=== PATIENT | female | born 1955 | race Caucasian/White ===

== ENCOUNTER → 2017-11-13 | Outpatient (CLI) | payer SELFPAY | LOC: COL.RAD 09:31 | DX: B19.20 Unspecified viral hepatitis C without hepatic coma (principal) ==

== ENCOUNTER 2018-08-06 10:31 | Day surgery (SDC) | payer SELFPAY ==
[2018-08-06] VITALS (9 sets, daily range): BP systolic 99–126; BP diastolic 72–89; PULSE 82–99; TEMP 98
[~2018-08-06] VITALS: Ht 165.1 cm; Wt 52.0 kg
[2018-08-06] MEDS ORDERED: VERAPAMIL 440 MG/TAB PO (11:38)
[2018-08-06] MEDS ORDERED: ZITHROMAX500 M2 PO (11:39)
[2018-08-06] MEDS ORDERED: ASPI325T6 PO (11:40)
[2018-08-06] MEDS ORDERED: NITROSTAT0.4 MG/TAB SL (11:41)
[2018-08-06 11:42] LABS: CALCIUM 9.2 mg/dL (8.4-10.2); CREATININE, serum 0.62 (0.52-1.25)
[2018-08-06] MEDS ORDERED: LOPRESSOR 225 MG/TAB PO (11:42)
[2018-08-06 11:46] LABS: INR 1.1 (0.8-3.0)
[2018-08-06 11:50] LABS: POTASSIUM 2.9 mmol/L (3.4-5.0)
--- NOTE | 2018-08-06 14:13 | NUR ---
Pt to dye lab technician for heart cath per bed with Yves.
[2018-08-06 14:17] LABS: HEMATOCRIT 38.7 % (37.0-47.0); HEMOGLOBIN 14.8 g/dl (12.5-16.0); MEAN CELL VOLUME 105 fl (80.0-100.0); MEAN CORPUSCULAR HEMOGLOBIN 40 pg (27.0-31.0); MEAN CORPUSCULAR HGB CONC 38 g/dl (33.0-37.0); MEAN PLATELET VOLUME 9.1 fl (7.4-10.4); PLATELET COUNT 318 K/mm3 (130-400); RED BLOOD COUNT 3.67 M/mm3 (4.10-5.30); REDCELL DISTRIBUTION WIDTH-CV 13.2 % (11.5-14.5)
--- NOTE | 2018-08-06 14:44 | NUR ---
ALL MEDICATIONS GIVEN VORB WITH MD. SEE MERGE FOR ALL MEDICATION ADMIN TIMES. SEE MERGE FOR RASS ASSESSMENTS DURING AND POST PROCEDURES.
--- NOTE | 2018-08-06 15:35 | NUR ---
Pt returned to EU 15 per bed s/p heart cath. Pt resting well, family at bedside.
--- NOTE | 2018-08-06 17:05 | NUR ---
Report to Janell Painting RN who assumed care at this time.
--- NOTE | 2018-08-06 17:44 | NUR ---
Ambulated to bathroom with steady gait. VSS.
--- NOTE | 2018-08-06 17:50 | NUR ---
Ambulated to bathroom with steady gait. Right groin site soft to palpation. INT discontinued intact.
--- NOTE | 2018-08-06 18:00 | NUR ---
Discharge instructions given and transferred to private car by cy
== END 2018-08-06 18:05 | disposition home or self-care (01) ==
LOC: COL.CAR 10:31
PROVIDERS: Internal Medicine Interventional Cardiology
DX: I25.10 Atherosclerotic heart disease of native coronary artery without angina pectoris (principal); R94.31 Abnormal electrocardiogram [ECG] [EKG]; I10 Essential (primary) hypertension; R53.83 Other fatigue; F17.210 Nicotine dependence, cigarettes, uncomplicated; Z88.0 Allergy status to penicillin; Z88.8 Allergy status to other drugs, medicaments and biological substances
CPT/HCPCS: C1760; C1894; J1644; J2250; J3010; J3480; Q9967

== ENCOUNTER 2018-11-30 15:38 | Inpatient (IN) | payer OTHER ==
[~2018-11-30] VITALS: Ht 165.1 cm; Wt 53.7 kg
[~2018-11-30 15:38] MED LIST: ASPI325T6 PO; LOPRESSOR 225 MG/TAB PO; NITROSTAT0.4 MG/TAB SL; VERAPAMIL 440 MG/TAB PO; ZITHROMAX500 M2 PO
[2018-11-30] MEDS ORDERED: VERAPAMIL 440 MG/TAB PO (15:51)
[2018-11-30 16:02] LABS: BASO # 0.1 (0.0-0.2); BASO % 0.5 % (0.0-2.0); EOS % 0.1 % (0-4.0); GRAN # 10.9 (1.4-6.5); GRAN % 80.3 % (42.2-75.2); HEMATOCRIT 39.8 % (37.0-47.0); HEMOGLOBIN 14.9 g/dl (12.5-16.0); LYMPH # 1.9 (1.2-3.4); LYMPH % 13.9 % (20.0-51.0); MEAN CELL VOLUME 105 fl (80.0-100.0); MEAN CORPUSCULAR HEMOGLOBIN 39 pg (27.0-31.0); MEAN CORPUSCULAR HGB CONC 37 g/dl (33.0-37.0); MEAN PLATELET VOLUME 9.2 fl (7.4-10.4); MONO # 0.7 (0.1-0.6); MONO % 4.8 % (1.7-9.3); PLATELET COUNT 375 K/mm3 (130-400); RED BLOOD COUNT 3.79 M/mm3 (4.10-5.30); REDCELL DISTRIBUTION WIDTH-CV 17.5 % (11.5-14.5)
[2018-11-30 16:10] LABS: ALANINE AMINOTRANSFERASE 26 U/L (9-52); ALKALINE PHOSPHATASE 92 U/L (50-136); ANION GAP 17 mmol/L (7-16); AST,SGOT 69 U/L (15-37); BLOOD UREA NITROGEN 13 mg/dL (7-17); CALCIUM 9.5 mg/dL (8.4-10.2); CARBON DIOXIDE 20 mmol/L (22-30); CHLORIDE 97 mmol/L (98-107); GLUCOSE 159 mg/dL (74-106); SODIUM 134 mmol/L (137-145); TOTAL PROTEIN 7.6 gm/dL (6.4-8.2)
[2018-11-30 16:23] LABS: TROPONIN-I < 0.012 ng/mL (0.000-0.035)
[2018-11-30] MEDS ORDERED: KLOR-CON20 MEQ PO (18:31)
[2018-11-30] MEDS ORDERED: PREDNISONE20 MG PO (18:31)
[2018-11-30 21:44] LABS: INR 0.9 (0.8-3.0); PROTHROMBIN TIME 10.9 SECONDS (9.7-12.8)
[2018-11-30 21:46] LABS: PARTIAL THROMBOPLASTIN TIME 26.2 SECONDS (26.0-37.0)
[2018-11-30 22:10] VITALS: BP 128/76; PULSE 88; TEMP 98
[2018-12-01] VITALS (12 sets, daily range): BP systolic 91–136; BP diastolic 46–73; PULSE 72–105; TEMP 97–98.7
[2018-12-01 00:58] LABS: ARTERIAL BLD GAS O2 SATURATION 97.9 % (92-100); ARTERIAL BLD GAS TCO2 CT 17.3; ARTERIAL BLOOD GAS BASE EXCESS -6.1 (-2-2); ARTERIAL BLOOD GAS HCO3 16.5 meq/L (22-26); ARTERIAL BLOOD GAS PCO2 24.7 mmHg (35-45); ARTERIAL BLOOD GAS pH 7.44 (7.35-7.45)
--- NOTE | 2018-12-01 01:00 | NUR ---
Patient arrived to medical floor from ER at aproximately 2200. Denies having pain and discomfort. Alert and oriented x 4, and able to make needs known. Peripheral IV to left forearm. Fluids started per orders. Denies having SOB and dyspnea. See assesment. Attempted to start another IV to right forearm, unable. Will have another nurse try. Patient is currently down for CT. ABG obtained and results given to CST.
--- NOTE | 2018-12-01 04:59 | NUR ---
Patient has received some oral Ativan for alcohol detox-anxiety and tremors. Gait remains very unsteady. One assist. Has urinated twice. UA obtained and taken to lab. Patient remains NPO at this time. Needs reminders on being NPO and purpose. NS currently running at 150 ml/hr to peripheral IV to right forearm, along with potassium replacement. Patient may be getting an EGD this morning, waiting to be seen by GI first. MRI brain to be done today as well. Patient voices no questions, needs, or concerns at this time. Patient is on high fall risk precautions. Resting in bed with call light within reach.
[2018-12-01 05:00] LABS: COLLECTION METHOD CLEAN CATCH
[2018-12-01 05:07] LABS: MUCOUS Present /lpf; PH 7 (5-8); SQUAMOUS EPITHELIAL 0-2 /hpf; URINE APPEARANCE Clear; URINE BACTERIA None Seen /hpf; URINE BILIRUBIN Negative (NEGATIVE); URINE BLOOD 1+ (NEGATIVE); URINE COLOR Yellow; URINE GLUCOSE Negative (NEGATIVE); URINE KETONE Negative (NEGATIVE); URINE LEUKOCYTE ESTERASE Negative (NEGATIVE); URINE NITRATE Negative (NEGATIVE); URINE PROTEIN(semi-quant) Negative (NEGATIVE); URINE RBC None Seen /hpf; URINE UROBILINOGEN Negative (NEGATIVE)
[2018-12-01 05:13] LABS: TRICYCLIC ANTIDEPRESS URINE NEGATIVE
[2018-12-01 06:48] LABS: BASO % 0.1 % (0.0-2.0); GRAN # 13.1 (1.4-6.5); GRAN % 89.7 % (42.2-75.2); LYMPH # 0.8 (1.2-3.4); LYMPH % 5.2 % (20.0-51.0); MEAN CELL VOLUME 109 fl (80.0-100.0); MEAN CORPUSCULAR HGB CONC 36 g/dl (33.0-37.0); MEAN PLATELET VOLUME 9.4 fl (7.4-10.4); MONO # 0.7 (0.1-0.6); MONO % 4.6 % (1.7-9.3); RED BLOOD COUNT 2.58 M/mm3 (4.10-5.30)
[2018-12-01 06:50] LABS: HEMATOCRIT 28.2 % (37.0-47.0); HEMOGLOBIN 10.2 g/dl (12.5-16.0); MEAN CORPUSCULAR HEMOGLOBIN 40 pg (27.0-31.0); PLATELET COUNT 260 K/mm3 (130-400)
[2018-12-01 06:57] LABS: ALBUMIN 2.7 gm/dL (3.5-5.0); BILIRUBIN,TOTAL 0.5 mg/dL (0.0-1.0); CALCIUM 6.8 mg/dL (8.4-10.2); CREATININE, serum 0.45 (0.52-1.25); MAGNESIUM 2.4 mg/dL (1.6-2.3); POTASSIUM 3.7 mmol/L (3.4-5.0); TOTAL PROTEIN 5.6 gm/dL (6.4-8.2)
[2018-12-01 10:31] LABS: POTASSIUM 3.6 mmol/L (3.4-5.0)
[2018-12-01 10:39] LABS: PRE ALBUMIN 12.7 mg/dL (17.6-36.0)
--- NOTE | 2018-12-01 16:31 | NUR ---
GEORGE met with patient to discuss discharge planning. Patient lives independently at home with her friend. Patient reports she goes to [facility] for primary care. Patient obtains medications from [facility] pharmacy. Patient reports she uses [employer] to help pay for medications. SW provided [employer] resource as well. Patient is independent with ADLs and does not use any DME or home health. Patient was also interested in getting food stamps. GEORGE provided the phone number for [place] [employer] [facility]. Patient applied for medicaid with the financial counselor. GEORGE will continue to follow.
--- NOTE | 2018-12-01 18:38 | NUR ---
PT HAD UNEVENTFUL DAY. STATED A FEW TIMES THAT SHE WANTS ATIVAN EVERY HOUR SO SHE CAN SLEEP. THIS NURSE REVIEWED THE ATIVAN ORDER WITH THE PT, INFORMED HER ITS AND ALCOHOL DETOX SCALE AND DOSE DEPENDING ON HER SCORE, THAT ITS NOT A STANDARD PRN ATIVAN DOSE. PT VOICED UNDERSTANDING BUT THEN ASKED FOR IT A FEW TIMES THIS SHIFT IN ORDER TO SLEEP DUE TO US BEING IN HER ROOM SEVERAL TIMES TO TAKE VITALS OR DOCTORS BEING IN. THIS NURSE CALLED DR. JUNE AND RECIEVED A VERBAL ORDER FOR AMBIAN FOR SLEEP AND NOT TO USE ATIVAN FOR SLEEP. PT'S DIET WAS ADVANCED TO GENERAL DIET, PT TOLERATED WELL. PT HAD C/O KNEE PAIN THIS AFTERNOON, THIS NURSE ASKED DR. RAM ABOUT PAIN MEDS DUE TO HER ONLY HAVING IV DILADID ON ORDER, PROVIDER STATED HE WAS GOING TO LOOK OVER PT MEDS AND LBAS THEN PUT IN A PAIN MED, AT THIS TIME STILL WAITING A MEDS ORDER. THIS NURSE INFORMED PT THAT WE ARE WAITING FOR MEDICATION ORDER, PT VERBALIZED UNDERSTANDING. PT HAS ONLY BEEN SCORING 1-2'S ON DETOX PROTOCOL THIS SHIFT. HAS BEEN RECIEVING THIMINE IV TID WITHOUT ISSUES, DOES HAVE C/O IT STINGING BETI, SLOWED DOWN RATE A LITTLE BIT AND PT TOLERATED IT WELL.
--- NOTE | 2018-12-01 20:20 | NUR ---
Patient assessed at this time. Alert and oriented x 4, and able to make needs known. Reported pain to knees. Given PRN Irene as requested. Peripheral IV to left forearm. NS running at 75 ml/hr per orders. Site is without redness, warmth, swelling, and pain. LS CTA in upper lobes, diminished in lower lobes. HRR. Telemetry in place. Denies chest pain and discomfort. Capillary refill less than 3 seconds. Non-tenting skin turgor. BSAx4. Abdomen soft and non-tender. No edema. Patient's skin is dry. Given PRN Ambien as requested for insomnia. Patient not scoring enough for PRN Ativan. Resting in bed with call light within reach.
[2018-12-01 23:50] LABS: FOLATE (FOLIC ACID) 15.6 ng/mL (7.0-31.4)
[2018-12-02] VITALS (8 sets, daily range): BP systolic 94–138; BP diastolic 51–85; PULSE 75–96; TEMP 97.7–98.7
--- NOTE | 2018-12-02 06:02 | NUR ---
Patient has not had any further complaints of pain or discomfort voiced at this time. Has been resting in bed with eyes closed most of this shift. NS continues to run at 75 ml/hr. Patient has been NPO since midnight for EGD scheduled for today. Voices no questions, needs, or concerns. Resting in bed with call light within reach.
[2018-12-02 06:17] LABS: BASO % 0.2 % (0.0-2.0); EOS % 0.1 % (0-4.0); GRAN # 12.8 (1.4-6.5); GRAN % 81.1 % (42.2-75.2); LYMPH # 2.1 (1.2-3.4); LYMPH % 13.6 % (20.0-51.0); MEAN CORPUSCULAR HGB CONC 34 g/dl (33.0-37.0); MEAN PLATELET VOLUME 9.7 fl (7.4-10.4); MONO # 0.7 (0.1-0.6); MONO % 4.3 % (1.7-9.3); PLATELET COUNT 242 K/mm3 (130-400); RED BLOOD COUNT 2.53 M/mm3 (4.10-5.30); REDCELL DISTRIBUTION WIDTH-CV 18.5 % (11.5-14.5)
[2018-12-02 06:25] LABS: HEMATOCRIT 28.8 % (37.0-47.0); HEMOGLOBIN 9.9 g/dl (12.5-16.0); MEAN CORPUSCULAR HEMOGLOBIN 39 pg (27.0-31.0)
[2018-12-02 06:26] LABS: MEAN CELL VOLUME 114 fl (80.0-100.0)
[2018-12-02 06:28] LABS: ALBUMIN 2.7 gm/dL (3.5-5.0); BILIRUBIN,TOTAL 0.5 mg/dL (0.0-1.0); CALCIUM 7.3 mg/dL (8.4-10.2); CREATININE, serum 0.45 (0.52-1.25); PHOSPHOROUS 1.8 mg/dL (2.5-4.5); POTASSIUM 4.2 mmol/L (3.4-5.0); TOTAL PROTEIN 5.4 gm/dL (6.4-8.2)
--- NOTE | 2018-12-02 19:30 | NUR ---
Patient assessed at this time. Alert and oriented, and able to make needs known. Reported level 8 pain to back/right scapula area. Given PRN Morphine as requested. Peripheral IV to left forearm flushed. Site is without redness, warmth, swelling, and pain. Denies having SOB and dyspnea. LS CTA in upper lobes, diminished in lower lobes. Occasional moist cough, unable to produce sputum. HRR. Capillary refill less than 3 seconds. Non-tenting skin turgor. BSAx4. Abdomen soft and non-tender. No edema. Bruising to left wrist and right AC. Denies having nausea. Upset about diet, but did have difficulty swallowing one pill tonight. Explained that soft foods are best for her swallowing at this time, and voiced understanding. Resting in bed watching TV. Call light is within reach.
--- NOTE | 2018-12-02 19:49 | NUR ---
PT MAIN CONSERN WAS BEING ABLE TO ADVANCE DIET. DIET ADVANCED PER DOC ORDERS. NO C/O N/V. PT STATED SHE HAD BACK PAIN FROM LAYING ON HARD METAL BED FOR THE EGD, WA GIVEN PAIN MEDS ABLE TO, STATED PAIN REMAINS AND THAT SHE THINKS IT BRUISED HER BACK BONE. NO OTHER ISSUES NOTED. PT DID HAVE THIS NURSE CRUSH HER PHOLATE MED DUE TO IT BEING TO LARGE TO SWALLOW.
[2018-12-03] VITALS (8 sets, daily range): BP systolic 116–136; BP diastolic 71–75; PULSE 62–90; TEMP 98–98.8
--- NOTE | 2018-12-03 00:51 | NUR ---
Patient complaining of level 8 pain to back/scapula, described as stabbing. Given PRN [place] as requested for pain at this time.
--- NOTE | 2018-12-03 06:03 | NUR ---
No futher complaints of pain or discomfort. Voices no questions, needs, or concerns, except asking when her diet will be advanced to regular.
[2018-12-03 06:13] LABS: BASO % 0.2 % (0.0-2.0); EOS # 0.1 (0.0-0.7); EOS % 0.7 % (0-4.0); GRAN # 7.5 (1.4-6.5); GRAN % 69.3 % (42.2-75.2); LYMPH # 2.6 (1.2-3.4); LYMPH % 24.2 % (20.0-51.0); MEAN CELL VOLUME 113 fl (80.0-100.0); MEAN CORPUSCULAR HGB CONC 34 g/dl (33.0-37.0); MEAN PLATELET VOLUME 9.8 fl (7.4-10.4); MONO # 0.5 (0.1-0.6); PLATELET COUNT 202 K/mm3 (130-400); RED BLOOD COUNT 2.47 M/mm3 (4.10-5.30); REDCELL DISTRIBUTION WIDTH-CV 18.6 % (11.5-14.5)
[2018-12-03 06:27] LABS: ALBUMIN 2.6 gm/dL (3.5-5.0); BILIRUBIN,TOTAL 0.5 mg/dL (0.0-1.0); CALCIUM 7.7 mg/dL (8.4-10.2); CREATININE, serum 0.4 (0.52-1.25); TOTAL PROTEIN 5.2 gm/dL (6.4-8.2)
[2018-12-03 06:38] LABS: HEMOGLOBIN 9.6 g/dl (12.5-16.0); MEAN CORPUSCULAR HEMOGLOBIN 39 pg (27.0-31.0)
--- NOTE | 2018-12-03 08:15 | NUR ---
Assessment complete. Pt sitting up in bed, A&O x 4. Breath sounds CTAB. BS active x 4. Pt reports pain to throat and right back/shoulder, 8 out of 10. Saline lock IV to left forearm without s/s of complications. No further needs reported. Call light in reach.
[2018-12-03] MEDS ORDERED: ZOFRAN ODT4 MG PO ×2 (10:16)
[2018-12-03] MEDS ORDERED: PROTONIX 40MG T40 MG PO ×2 (10:16)
[2018-12-03] MEDS ORDERED: DUO-KAPS1 CAP PO ×2 (10:17)
[2018-12-03] MEDS ORDERED: THIAMINE 1100 MG/TAB PO ×2 (10:19)
[2018-12-03] MEDS ORDERED: NORCO 325 MG-51 TAB PO (10:29)
--- NOTE | 2018-12-03 13:30 | NUR ---
Discharge instructions reviewed with pt regarding new medications, follow-up appointments. Pt verbalizes understanding, discharged home, escorted out of facility via WC accompanied by DBA MANAGER and pt's family.
--- NOTE | 2018-12-03 16:39 | NUR ---
SW attended clinical rounds. Patient's daughter and friend were also present. Patient will discharge home today. PT is recommending a walker. [facility] provided a walker for patient due to patient not having insurance. SW also provided [employer] coupons for new medications. Patient's daughter will provide transportation and take patient to tile picker her medication.
== END 2018-12-03 13:30 | disposition home or self-care (01) | DRG 191 ==
LOC: COL.ER 15:38 → MEDICAL 20:43
PROVIDERS: Emergency Medicine; Internal Medicine Gastroenterology; Nurse Practitioner Family; Psychiatry & Neurology Neurology; ADMIT Hospitalist
PROC: 0DB78ZX Excision of Stomach, Pylorus, Via Natural or Artificial Opening Endoscopic, Diagnostic (ICD-10-PCS; principal; 2018-12-02 10:30)
DX: J44.1 Chronic obstructive pulmonary disease with (acute) exacerbation (principal); E87.2 Acidosis; R65.10 Systemic inflammatory response syndrome (SIRS) of non-infectious origin without acute organ dysfunction; E46 Unspecified protein-calorie malnutrition; K86.0 Alcohol-induced chronic pancreatitis; I10 Essential (primary) hypertension; K22.2 Esophageal obstruction; F10.10 Alcohol abuse, uncomplicated; G62.1 Alcoholic polyneuropathy; D53.9 Nutritional anemia, unspecified; R26.9 Unspecified abnormalities of gait and mobility; K76.0 Fatty (change of) liver, not elsewhere classified; E83.39 Other disorders of phosphorus metabolism; F17.210 Nicotine dependence, cigarettes, uncomplicated; E11.9 Type 2 diabetes mellitus without complications; R13.10 Dysphagia, unspecified; E87.6 Hypokalemia; E83.42 Hypomagnesemia; R53.81 Other malaise; R63.4 Abnormal weight loss; Z88.0 Allergy status to penicillin
CPT/HCPCS: 99222-AI; 99232-AI; 99239; A9585; C1726; C9113; J1815; J2250; J2270; J2405; J2704; J3411; J3475; J3480; J7030; J7040; J7512

== ENCOUNTER 2020-10-10 09:21 | Emergency (ER) | payer SELFPAY ==
[~2020-10-10] VITALS: Ht 165.1 cm; Wt 70.5 kg
[~2020-10-10 09:21] MED LIST changes: +DUO-KAPS1 CAP PO; +KLOR-CON20 MEQ PO; +NORCO 325 MG-51 TAB PO; +PREDNISONE20 MG PO; +PROTONIX 40MG T40 MG PO; +THIAMINE 1100 MG/TAB PO; +ZOFRAN ODT4 MG PO
[2020-10-10 09:37] VITALS: TEMP 98.1
[2020-10-10 10:23] LABS: COLLECTION METHOD CLEAN CATCH
[2020-10-10 10:34] LABS: BASO # 0.1 (0.0-0.2); BASO % 0.7 % (0.0-2.0); EOS # 0.2 (0.0-0.7); GRAN # 6.3 (1.4-6.5); GRAN % 69.8 % (42.2-75.2); HEMATOCRIT 43.4 % (37.0-47.0); HEMOGLOBIN 15.3 g/dl (12.5-16.0); LYMPH # 1.7 (1.2-3.4); LYMPH % 18.5 % (20.0-51.0); MEAN CELL VOLUME 101 fl (80.0-100.0); MEAN CORPUSCULAR HEMOGLOBIN 35 pg (27.0-31.0); MEAN CORPUSCULAR HGB CONC 35 g/dl (33.0-37.0); MEAN PLATELET VOLUME 9.3 fl (7.4-10.4); MONO # 0.8 (0.1-0.6); MONO % 8.7 % (1.7-9.3); PLATELET COUNT 218 K/mm3 (130-400); RED BLOOD COUNT 4.32 M/mm3 (4.10-5.30); REDCELL DISTRIBUTION WIDTH-CV 14.8 % (11.5-14.5)
[2020-10-10 10:42] LABS: PH 7 (5-8); SQUAMOUS EPITHELIAL 0-2 /hpf; URINE APPEARANCE Hazy; URINE BACTERIA Rare /hpf; URINE BILIRUBIN Negative (NEGATIVE); URINE BLOOD 1+ (NEGATIVE); URINE COLOR Yellow; URINE GLUCOSE Negative (NEGATIVE); URINE KETONE Negative (NEGATIVE); URINE LEUKOCYTE ESTERASE 1+ (NEGATIVE); URINE NITRATE Negative (NEGATIVE); URINE PROTEIN(semi-quant) Negative (NEGATIVE); URINE UROBILINOGEN Negative (NEGATIVE)
[2020-10-10 10:48] LABS: ALBUMIN 4.1 gm/dL (3.5-5.0); C-REACTIVE PROTEIN 1.4 mg/dL (0.0-0.9); CALCIUM 9.1 mg/dL (8.4-10.2); CREATININE, serum 0.45 (0.52-1.25); POTASSIUM 3.4 mmol/L (3.4-5.0); TOTAL PROTEIN 7.7 gm/dL (6.4-8.2)
[2020-10-10] MEDS ORDERED: BACTRIM DS 8001 TAB PO (11:28)
[2020-10-10 11:50] VITALS: BP 124/77; PULSE 79
== END 2020-10-10 11:50 | disposition home or self-care (01) ==
LOC: COL.ER 09:21
PROVIDERS: Nurse Practitioner Primary Care
DX: N39.0 Urinary tract infection, site not specified (principal); J44.9 Chronic obstructive pulmonary disease, unspecified; F17.210 Nicotine dependence, cigarettes, uncomplicated
CPT/HCPCS: J2405; J7030

== ENCOUNTER 2021-05-15 06:32 | Inpatient (IN) | payer SELFPAY ==
[~2021-05-15] VITALS: Ht 165.1 cm; Wt 70.9 kg
[~2021-05-15 06:32] MED LIST changes: +BACTRIM DS 8001 TAB PO
[2021-05-15 07:50] LABS: BASO # 0.1 K/mm3 (0.0-0.2); BASO % 1.1 % (0.0-2.0); EOS # 0.2 K/mm3 (0.0-0.7); EOS % 2.1 % (0.0-4.0); GRAN # 5.6 K/mm3 (1.4-6.5); GRAN % 66.1 % (42.2-75.2); HEMATOCRIT 41.6 % (37.0-47.0); HEMOGLOBIN 14.2 g/dl (12.5-16.0); LYMPH # 1.9 K/mm3 (1.2-3.4); LYMPH % 22.4 % (20.0-51.0); MEAN CELL VOLUME 99 fl (80.0-100.0); MEAN CORPUSCULAR HEMOGLOBIN 34 pg (27-31); MEAN CORPUSCULAR HGB CONC 34 g/dl (33.0-37.0); MEAN PLATELET VOLUME 8.9 fl (7.4-10.4); MONO # 0.7 K/mm3 (0.1-0.6); MONO % 8.1 % (1.7-9.3); PLATELET COUNT 255 K/mm3 (130-400); RED BLOOD COUNT 4.21 M/mm3 (4.10-5.30); REDCELL DISTRIBUTION WIDTH-CV 15.9 % (11.5-14.5)
[2021-05-15 08:07] LABS: BILIRUBIN,TOTAL 0.7 mg/dL (0.2-1.2); CALCIUM 9.2 mg/dL (8.4-10.2); CREATININE, serum 0.72 mg/dL (0.57-1.11); POTASSIUM 3.8 mmol/L (3.5-4.5); TOTAL PROTEIN 7.6 gm/dL (6.2-8.1)
[2021-05-15 09:29] LABS: COLLECTION METHOD CLEAN CATCH
[2021-05-15 09:39] LABS: SQUAMOUS EPITHELIAL 0-2 /hpf (0-10); URINE BACTERIA None Seen /hpf (NONE SEEN); URINE RBC 0-2 /hpf (0-2)
[2021-05-15 09:40] LABS: URINE COLOR Yellow (YELLOW)
[2021-05-15 09:41] LABS: PH 5 (5-8); URINE APPEARANCE Clear (CLEAR/HAZY); URINE BILIRUBIN Negative (NEGATIVE); URINE BLOOD Negative (NEGATIVE); URINE GLUCOSE Negative (NEGATIVE); URINE KETONE Negative (NEGATIVE); URINE LEUKOCYTE ESTERASE Negative (NEGATIVE); URINE NITRATE Negative (NEGATIVE); URINE PROTEIN(semi-quant) Negative (NEGATIVE); URINE UROBILINOGEN Negative (NEGATIVE)
[2021-05-15] MEDS ORDERED: MOTRIN 200200 MG/TAB PO (14:02)
[2021-05-15 16:36] VITALS: BP 143/67; PULSE 88; TEMP 98
--- NOTE | 2021-05-15 18:18 | NUR ---
Pt rested in bed after arriving to the floor. She is A/O x4 but very forgetful. She reports pain to L eye as well as itchiness. Redness to site. No SOB. Denies N/V, tolerating PO intake without issues. POC discussed with patient who verbalizes understanding. Call light within reach.
[2021-05-15 19:07] VITALS: BP 142/65; PULSE 92; TEMP 97.3
--- NOTE | 2021-05-15 19:45 | NUR ---
Patient is resting in bed, alert and oriented x 4, VSS, states some pain in her left eye. Skin around left eye is reddened with inflammation. Assessment completed, medications provided. No further needs at this time. Call light within reach.
--- NOTE | 2021-05-15 22:30 | NUR ---
Patient states her pain is 8/10 PRN provided. She asked for some sleep medication. Contacted Jennifer, melatonin added and provided.
[2021-05-15 23:41] VITALS: BP 123/44; PULSE 83; TEMP 97.6
--- NOTE | 2021-05-16 02:31 | NUR ---
Pt asked for help to apply some eye drops that she states someone from the hospital gave her. It was explained all substances should be registered to be applied. Consulted with Jennifer and Pharmacy. Some refreshing eye drops were added to the EMAR and provided.
[2021-05-16 04:35] VITALS: BP 114/55; PULSE 64; TEMP 97.3
--- NOTE | 2021-05-16 05:51 | NUR ---
Pt has had a difficult time to sleep. Has been resting in bed awake. Received sleep medications with no success. Report will be given to day RN.
[2021-05-16 08:02] VITALS: BP 113/55; PULSE 71; TEMP 98
[2021-05-16 08:55] LABS: BASO % 0.1 % (0.0-2.0); GRAN # 12.2 K/mm3 (1.4-6.5); GRAN % 87.4 % (42.2-75.2); HEMATOCRIT 36.6 % (37.0-47.0); LYMPH # 1.1 K/mm3 (1.2-3.4); LYMPH % 7.7 % (20.0-51.0); MEAN CELL VOLUME 102 fl (80.0-100.0); MEAN CORPUSCULAR HEMOGLOBIN 34 pg (27-31); MEAN CORPUSCULAR HGB CONC 33 g/dl (33.0-37.0); MEAN PLATELET VOLUME 9.5 fl (7.4-10.4); MONO # 0.6 K/mm3 (0.1-0.6); MONO % 4.3 % (1.7-9.3); PLATELET COUNT 279 K/mm3 (130-400)
[2021-05-16 08:57] LABS: HEMOGLOBIN 12.2 g/dl (12.5-16.0)
--- NOTE | 2021-05-16 09:02 | NUR ---
Assessment completed, alert/oriented, vital signs stable and has been afebrile, WBC up to 14 today/ was started on steroids, redness and swelling to left face/around eye, also on vanc and cleocin, patient has no other issues at thsi time, denies needs, sitting up eating breakfast
--- NOTE | 2021-05-16 11:26 | NUR ---
First visit from the veterinary milk specialist. No needs right now.
[2021-05-16 11:50] VITALS: BP 133/63; PULSE 77; TEMP 98.1
--- NOTE | 2021-05-16 13:53 | NUR ---
Field Identification Specialist met with patient to discuss discharge planning. Patient lives in [place] with her life partner, Liam aPtel. Patient states they have been together for 30 years but are not . Patient does not have a primary care physician and reports she went to [facility] a long time ago. Patient states she just never goes to the doctor. Patient uses [facility] when she needs any medications. Patient does not use any DME and is independent with ADLS. Patient does not have Advance Directives and is not interested in setting up DPOA-HC at this time. Patient is not and has three children: Marylu (ph#[phone]), Geo, and Juan. Patient states Geo and Juan live in [facility]. Patient plans to return home at time of discharge. Discharge Plan: Home
[2021-05-16] MEDS ORDERED: CLEOCIN HCL300 MG PO (14:27)
[2021-05-16] MEDS ORDERED: PROTONIX 40MG T40 MG PO (14:27)
[2021-05-16] MEDS ORDERED: DECADRON 4MG TAB4 MG PO (14:29)
[2021-05-16] MEDS ORDERED: ULTRAM 50MG TAB50 MG PO (14:31)
--- NOTE | 2021-05-16 16:41 | NUR ---
patient discharging, intructed to follow up with PCP and ENT as scheduled, instructed to take meds as prescribed, scripts sent to [facility] for her, IV removed, leaving with her , TELESCOPE OPERATOR escorted them out
== END 2021-05-16 16:43 | disposition home or self-care (01) | DRG 122 ==
LOC: COL.ER 06:32 → MEDICAL 09:17
PROVIDERS: Family Medicine; ADMIT Internal Medicine
DX: H05.022 Osteomyelitis of left orbit (principal); H05.012 Cellulitis of left orbit; J44.9 Chronic obstructive pulmonary disease, unspecified; F17.210 Nicotine dependence, cigarettes, uncomplicated; K21.9 Gastro-esophageal reflux disease without esophagitis; J32.9 Chronic sinusitis, unspecified; F10.20 Alcohol dependence, uncomplicated; I10 Essential (primary) hypertension; Z20.822 Contact with and (suspected) exposure to COVID-19; Z88.0 Allergy status to penicillin
CPT/HCPCS: 99223-AI; 99239; J0696; J1100; J1650; J2060; J2270; J2405; J3370; J7050; J8540; Q9967

== ENCOUNTER 2021-09-05 13:20 | Emergency (ER) | payer SELFPAY ==
[~2021-09-05] VITALS: Ht 165.1 cm; Wt 63.6 kg
[~2021-09-05 13:20] MED LIST changes: +CLEOCIN HCL300 MG PO; +DECADRON 4MG TAB4 MG PO; +MOTRIN 200200 MG/TAB PO; +ULTRAM 50MG TAB50 MG PO
[2021-09-05 13:36] VITALS: BP 133/78; TEMP 97.5
[2021-09-05] MEDS ORDERED: CEPHALEXIN500 M1 PO (14:03)
[2021-09-05 14:25] VITALS: PULSE 74
== END 2021-09-05 14:25 | disposition home or self-care (01) ==
LOC: COL.ER 13:20
DX: H00.015 Hordeolum externum left lower eyelid (principal); F17.200 Nicotine dependence, unspecified, uncomplicated; Z88.0 Allergy status to penicillin; Z28.310 Unvaccinated for COVID-19